=== PATIENT | female | born 1975 | race African-American/Black ===

== ENCOUNTER 2017-08-28 17:41 | Emergency (ER) | payer BC ==
[~2017-08-28] VITALS: Ht 167.6 cm; Wt 140.0 kg
[~2017-08-28 17:41] MED LIST: ALBUTEROL SUL0.083 % IN; AMOXICILLIN500 MG PO; ANAPROX275 MG OR; ASMANEX 30220 MCG IN; CYCLOBENZAPR10 MG PO; ERY-TAB333 MG OR; LORTAB5 OR; MEDDOSEPAK OR; MEDDOSEPAK PO; NAPROSYN500 MG PO; NO HOME MEDS; NO MEDS; PENICILLN VK500 M1 OR; PREDNISONE10 MG OR; PREDNISONE10 MG PO; ROBITUSS11 OR; ROBITUSSIN AC10 ML PO; VENTOLIN HFA IN; VICODIN ES1 TAB OR; ZITHROMAX250 MG PO; ZPAK OR; ZPAK PO
[2017-08-28] MEDS ORDERED: IBUPROFEN600 MG PO (19:46)
[2017-08-28 19:49] VITALS: BP 152/77
== END 2017-08-28 20:02 | disposition home or self-care (01) | DRG 554 ==
LOC: ED 17:41
DX: M17.11 Unilateral primary osteoarthritis, right knee (principal); M23.8X1 Other internal derangements of right knee; M25.561 Pain in right knee; X50.1XXA Overexertion from prolonged static or awkward postures, initial encounter; Y92.009 Unspecified place in unspecified non-institutional (private) residence as the place of occurrence of the external cause
CPT/HCPCS: L1830

== ENCOUNTER 2018-11-20 08:24 | Emergency (ER) | payer BC ==
[~2018-11-20] VITALS: Ht 167.6 cm; Wt 150.0 kg
[~2018-11-20 08:24] MED LIST changes: +IBUPROFEN600 MG PO
[2018-11-20] MEDS ORDERED: MOTRIN400 MG PO (08:47)
[2018-11-20 09:39] VITALS: BP 132/83
== END 2018-11-20 10:03 | disposition home or self-care (01) | DRG 563 ==
LOC: ED 08:24
DX: S86.912A Strain of unspecified muscle(s) and tendon(s) at lower leg level, left leg, initial encounter (principal); X58.XXXA Exposure to other specified factors, initial encounter

== ENCOUNTER 2018-12-12 18:47 | Emergency (ER) | payer BC ==
[~2018-12-12] VITALS: Ht 167.6 cm; Wt 110.0 kg
[~2018-12-12 18:47] MED LIST changes: +MOTRIN400 MG PO
[2018-12-12] MEDS ORDERED: IBUPROFEN600 MG PO (20:41)
[2018-12-12 21:00] VITALS: BP 152/94
== END 2018-12-12 21:00 | disposition home or self-care (01) | DRG 556 ==
LOC: ED 18:47
DX: M79.671 Pain in right foot (principal)

== ENCOUNTER 2019-09-11 | Emergency (ER) | payer BC ==
[2019-09-11] MEDS ORDERED: EPIPEN 2-P0.3 MG/0.3 IM ×2 (11:45)
[2019-09-11] MEDS ORDERED: PREDNISONE50 MG PO ×2 (11:45)
== END 2019-09-11 12:26 | disposition home or self-care (01) | DRG 916 ==
DX: T78.3XXA Angioneurotic edema, initial encounter (principal); X58.XXXA Exposure to other specified factors, initial encounter

== ENCOUNTER 2020-03-19 08:59 | Emergency (ER) | payer BC ==
[~2020-03-19] VITALS: Ht 167.6 cm; Wt 150.0 kg
[~2020-03-19 08:59] MED LIST changes: +EPIPEN 2-P0.3 MG/0.3 IM; +PREDNISONE50 MG PO
[2020-03-19] MEDS ORDERED: NAPROXEN375 MG PO (11:55)
[2020-03-19 12:02] VITALS: BP 145/77
== END 2020-03-19 12:10 | disposition home or self-care (01) | DRG 556 ==
LOC: ED 08:59
DX: M25.562 Pain in left knee (principal)

== ENCOUNTER 2020-11-01 | Emergency (ER) | payer BC ==
[~2020-11-01] MED LIST changes: +NAPROXEN375 MG PO
[2020-11-01 13:44] LABS: HEMATOCRIT 37.3 % (37.0-47.0); HEMOGLOBIN 11.2 g/dl (12.0-16.0); IMMATURE GRANULOCYTES 0.4 % (0.0-5.0); MEAN CELL VOLUME 81.1 fL CALC (80.0-100.0); MEAN CORPUSCULAR HGB 24.3 pG CALC (26.0-32.0); NEUT# 7.84 thou/uL (2.00-7.15); RED BLOOD COUNT 4.6 mill/uL (4.20-5.60); RED CELL DISTRI WIDTH 16.5 % (11.5-15.5)
[2020-11-01 14:01] LABS: ALBUMIN 4.7 g/dL (3.2-5.0); ALKALINE PHOSPHATASE 108 u/l (38-126); ANION GAP 12 (6-22 (CALC)); BUN 14 mg/dL (7-17); BUN/CREATININE RATIO 24 (12-20 (CALC)); CARBON DIOXIDE 27 mmol/l (22-30); CHLORIDE 101 mmol/l (95-108); CREATININE 0.6 mg/dL (0.5-1.0); GFR > 60 ML/MIN (>=60 (CALC)); GFR FOR AFR.AMER. > 60 ML/MIN (>=60 (CALC)); LIPASE 235 u/l (23-300); POTASSIUM 4.1 mmol/l (3.5-5.1); SGOT/AST 25 u/l (14-36); SODIUM 136 mmol/l (137-146)
[2020-11-01 14:04] LABS: BILIRUBIN, TOTAL 0.7 mg/dL (0.0-1.4)
[2020-11-01 14:45] LABS: URINE BILIRUBIN - DIPSTICK NEGATIVE (NEGATIVE); URINE BLOOD DIPSTICK NEGATIVE (NEGATIVE); URINE COLOR YELLOW; URINE GLUCOSE - DIPSTICK NEGATIVE (NEGATIVE); URINE KETONE NEGATIVE (NEGATIVE); URINE LEUK ESTERASE NEGATIVE (NEGATIVE); URINE PROTEIN - DIPSTICK NEGATIVE (NEG-TRACE); URINE UROBILINOGEN - DIPSTICK 0.2 E.U./dL (0.2)
[2020-11-01] MEDS ORDERED: OMEPRAZOLE10 MG PO (14:47)
[2020-11-01] MEDS ORDERED: LOSARTAN POTASS25 MG PO (14:47)
[2020-11-01 14:48] LABS: URINE NITRITE - DIPSTICK NEGATIVE (Negative)
[2020-11-01] MEDS ORDERED: FOLIC ACID1 MG PO (14:48)
[2020-11-01] MEDS ORDERED: FERRAPLUS 90 PO (14:48)
[2020-11-01] MEDS ORDERED: HYDROCHLOROTH12.5 MG PO (14:48)
== END 2020-11-01 16:49 | disposition home or self-care (01) | DRG 392 ==
DX: R10.31 Right lower quadrant pain (principal); Z20.822 Contact with and (suspected) exposure to COVID-19
CPT/HCPCS: Q9967

== ENCOUNTER 2021-06-22 12:21 | Emergency (ER) | payer BC ==
[~2021-06-22] VITALS: Ht 167.6 cm; Wt 135.0 kg
[~2021-06-22 12:21] MED LIST changes: +FERRAPLUS 90 PO; +FOLIC ACID1 MG PO; +HYDROCHLOROTH12.5 MG PO; +LOSARTAN POTASS25 MG PO; +OMEPRAZOLE10 MG PO
[2021-06-22] MEDS ORDERED: AMOXICILLIN500 M2 PO (13:11)
[2021-06-22 14:08] VITALS: BP 150/88
== END 2021-06-22 14:08 | disposition home or self-care (01) | DRG 153 ==
LOC: ED 12:21
DX: J02.9 Acute pharyngitis, unspecified (principal); I10 Essential (primary) hypertension; Z20.822 Contact with and (suspected) exposure to COVID-19

== ENCOUNTER 2021-07-08 08:28 | Emergency (ER) | payer BC ==
[~2021-07-08] VITALS: Ht 167.6 cm; Wt 142.0 kg
[~2021-07-08 08:28] MED LIST changes: +AMOXICILLIN500 M2 PO
[2021-07-08] MEDS ORDERED: TESSALON PERLE100 MG PO (09:36)
[2021-07-08 09:45] VITALS: BP 171/97
== END 2021-07-08 09:47 | disposition home or self-care (01) | DRG 153 ==
LOC: ED 08:28
DX: J06.9 Acute upper respiratory infection, unspecified (principal); I10 Essential (primary) hypertension; Z20.822 Contact with and (suspected) exposure to COVID-19

== ENCOUNTER 2022-06-29 11:25 | Emergency (ER) | payer BC ==
[~2022-06-29] VITALS: Ht 167.6 cm; Wt 145.0 kg
[2022-06-29] VITALS (8 sets, daily range): BP systolic 130–149; BP diastolic 65–88
[~2022-06-29 11:25] MED LIST changes: +TESSALON PERLE100 MG PO
[2022-06-29 12:09] LABS: HEMATOCRIT 36.8 % (37.0-47.0); HEMOGLOBIN 11.8 g/dl (12.0-16.0); IMMATURE GRANULOCYTES 0.3 % (0.0-5.0); MEAN CORPUSCULAR HGB 27.3 pG CALC (26.0-32.0); MEAN CORPUSCULAR HGB CONC 32.1 g/dL CAL (32.0-36.0); NEUT# 5.64 thou/uL (2.00-7.15); RED BLOOD COUNT 4.33 mill/uL (4.20-5.60); RED CELL DISTRI WIDTH 14.1 % (11.5-15.5)
[2022-06-29 12:40] LABS: ALBUMIN 4.7 g/dL (3.2-5.0); ALKALINE PHOSPHATASE 112 u/l (38-126); AMYLASE 106 u/l (30-110); BUN 14 mg/dL (7-17); BUN/CREATININE RATIO 22 (12-20 (CALC)); CARBON DIOXIDE 27 mmol/l (22-30); CHLORIDE 104 mmol/l (95-108); CREATININE 0.6 mg/dL (0.5-1.0); GFR FOR AFR.AMER. > 60 ML/MIN (>=60 (CALC)); GFR OTHER RACES > 60 ML/MIN (>=60 (CALC)); LIPASE 136 u/l (23-300); POTASSIUM 3.8 mmol/l (3.5-5.1); SGOT/AST 25 u/l (14-36); TOTAL PROTEIN 8.5 g/dL (6.3-8.2)
[2022-06-29 12:49] LABS: ANION GAP 16 (6-22 (CALC)); BILIRUBIN, TOTAL 0.4 mg/dL (0.0-1.4); SODIUM 143 mmol/l (137-146)
[2022-06-29] MEDS ORDERED: ZITHROMAX500 MG PO (14:10)
== END 2022-06-29 14:38 | disposition home or self-care (01) | DRG 195 ==
LOC: ED 11:25
PROVIDERS: Emergency Medicine
DX: J18.9 Pneumonia, unspecified organism (principal); I10 Essential (primary) hypertension

== ENCOUNTER 2022-10-29 17:35 | Emergency (ER) | payer BC ==
[2022-10-29] VITALS (8 sets, daily range): BP systolic 164–202; BP diastolic 93–111
[~2022-10-29] VITALS: Ht 167.6 cm; Wt 149.0 kg
[~2022-10-29 17:35] MED LIST changes: +ZITHROMAX500 MG PO
[2022-10-29] MEDS ORDERED: ZITHROMAX TRI-500 MG PO (20:57)
== END 2022-10-29 21:09 | disposition home or self-care (01) | DRG 203 ==
LOC: ED 17:35
DX: J40 Bronchitis, not specified as acute or chronic (principal); Z87.891 Personal history of nicotine dependence; Z20.822 Contact with and (suspected) exposure to COVID-19

== ENCOUNTER 2023-01-10 16:47 | Emergency (ER) | payer BC ==
[~2023-01-10] VITALS: Ht 167.6 cm; Wt 145.6 kg
[~2023-01-10 16:47] MED LIST changes: +ZITHROMAX TRI-500 MG PO
[2023-01-10 17:02] VITALS: BP 173/87
[2023-01-10 17:15] VITALS: BP 164/87
[2023-01-10 17:30] VITALS: BP 173/88
[2023-01-10 17:45] VITALS: BP 163/93
[2023-01-10 18:16] VITALS: BP 163/93
== END 2023-01-10 18:30 | disposition home or self-care (01) | DRG 179 ==
LOC: ED 16:47
DX: U07.1 COVID-19 (principal); R53.1 Weakness; R53.83 Other fatigue; R11.0 Nausea; R52 Pain, unspecified; J02.9 Acute pharyngitis, unspecified; I10 Essential (primary) hypertension

== ENCOUNTER 2024-01-28 17:29 | Emergency (ER) | payer BC ==
[~2024-01-28] VITALS: Ht 167.6 cm; Wt 145.1 kg
[2024-01-28] VITALS (8 sets, daily range): BP systolic 116–146; BP diastolic 70–79
[~2024-01-28 17:29] MED LIST changes: +MOTRIN800 MG PO; +TOBREX OPTH5 ML/BTL OU; +VISINE-A TOP
[2024-01-28] MEDS ORDERED: VOLTAREN - GENE75 MG PO (19:19)
[2024-01-28] MEDS ORDERED: DICLOFENAC SODIUM 75 MG/TAB PO ONE (19:20)
[2024-01-28] MEDS ORDERED: ACETAMINOPHEN 500 MG TAB PO ONE (19:20)
== END 2024-01-28 19:50 | disposition home or self-care (01) | DRG 563 ==
LOC: ED 17:29
DX: S86.912A Strain of unspecified muscle(s) and tendon(s) at lower leg level, left leg, initial encounter (principal); I10 Essential (primary) hypertension; X58.XXXA Exposure to other specified factors, initial encounter

== ENCOUNTER 2024-07-07 05:22 | Emergency (ER) | payer BC ==
[~2024-07-07] VITALS: Ht 167.6 cm; Wt 145.0 kg
[~2024-07-07 05:22] MED LIST changes: +VOLTAREN - GENE75 MG PO
[2024-07-07 05:28] VITALS: BP 186/103
[2024-07-07 05:30] VITALS: BP 184/93
[2024-07-07] MEDS ORDERED: ALBUTEROL SULFATE 2.5 MG VIAL IN STA (05:31)
[2024-07-07] MEDS ORDERED: IPRATROPIUM-Albuterol 0.5MG-2.5MG/3 ML IN STA (05:31)
[2024-07-07] MEDS ORDERED: methylPREDNISolone SODIUM SUCC 125 MG/2 ML SDV IM ONE (05:35)
[2024-07-07 05:54] LABS: BASO% 0.6 % (0-3); EOS% 8.8 % (0-8); IMMATURE GRANULOCYTES 0.4 % (0.0-5.0); MEAN CELL VOLUME 82.2 fL CALC (80.0-100.0); MEAN CORPUSCULAR HGB 25.1 pG CALC (26.0-32.0); MEAN CORPUSCULAR HGB CONC 30.6 g/dL CAL (32.0-36.0); MONO% 12.3 % (2-13); NEUT# 4.81 thou/uL (2.00-7.15); NEUT% 67.9 % (42-76); RED BLOOD COUNT 4.38 mill/uL (4.20-5.60); RED CELL DISTRI WIDTH 15.6 % (11.5-15.5)
[2024-07-07 06:00] VITALS: BP 177/91
[2024-07-07 06:24] VITALS: BP 184/100
[2024-07-07 06:30] VITALS: BP 180/96
[2024-07-07] MEDS ORDERED: PREDNISONE50 MG PO (06:41)
[2024-07-07 06:45] VITALS: BP 180/96
[2024-07-07] MEDS ORDERED: predniSONE 20 MG/TAB PO ONE (06:45)
== END 2024-07-07 07:00 | disposition home or self-care (01) | DRG 153 ==
LOC: ED 05:22
PROVIDERS: Family Medicine
DX: J06.9 Acute upper respiratory infection, unspecified (principal); I10 Essential (primary) hypertension; J45.909 Unspecified asthma, uncomplicated; Z20.822 Contact with and (suspected) exposure to COVID-19